=== PATIENT | male | born 1980 | race Two or more races ===

== ENCOUNTER 2019-09-10 15:24 | Emergency (ER) | payer MEDICAID, OTHER ==
[~2019-09-10] VITALS: Ht 172.7 cm; Wt 61.2 kg
[2019-09-10 15:48] VITALS: BP 136/76
[2019-09-10] MEDS ORDERED: KETOROLAC TROMETH 60MG/2ML VIAL IM ONE (17:30)
== END 2019-09-10 17:46 | disposition home or self-care (01) ==
LOC: ER 15:35
DX: G89.29 Other chronic pain (principal); M79.671 Pain in right foot; M79.641 Pain in right hand; F17.210 Nicotine dependence, cigarettes, uncomplicated
CPT/HCPCS: 96372; 99283; J1885